=== PATIENT | female | born 1980 | race Asian ===

== ENCOUNTER 2016-09-08 12:47 | Emergency (ER) | payer OTHER ==
[~2016-09-08] VITALS: Ht 160 cm; Wt 52.3 kg
[2016-09-08 14:10] VITALS: BP 111/68
== END 2016-09-08 14:12 | disposition left against medical advice (07) ==
LOC: RME 12:47 → EME 12:47 → RME 14:12
DX: R07.9 Chest pain, unspecified (principal)
CPT/HCPCS: 80048; 84484; 85027; 93005; 99281; 99284